=== PATIENT | female | born 1970 | race Two or more races ===

== ENCOUNTER 2018-08-13 02:31 | Inpatient (IN) | payer SELFPAY ==
[~2018-08-13] VITALS: Ht 154.9 cm; Wt 84.7 kg
[2018-08-13 03:05] LABS: Basophils # (auto) 0.2 uL; Basophils % (auto) 1.2 % (0.0-2.0); Eosinophils # (auto) 0.2 uL; Eosinophils % (auto) 0.9 % (0.0-7.0); Hematocrit 37.5 % (36.0-46.0); Hemoglobin 11.5 g/dL (12.2-16.2); Lymphocytes # (auto) 1.2 uL; Lymphocytes % (auto) 5.8 % (10.0-50.0); Mean Corpuscular Hemoglobin 19.8 pg (28.0-32.0); Mean Corpuscular Hgb Conc. 30.8 g/dL (32.0-36.0); Mean Corpuscular Volume 64.2 fL (80.0-100.0); Monocytes # (auto) 1.4 uL; Neutrophils # (auto) 17.5 uL; Neutrophils % (auto) 85.1 % (37.0-80.0); Platelet Count (auto) 398 10^3/uL (140-450); Red Blood Cells 5.83 10^6/uL (4.0-5.20); Red Cell Distribution Width 17.7 % (11.8-14.3); White Blood Cell 20.5 10^3/uL (4.4-10.8)
[2018-08-13 04:06] LABS: Albumin 3.4 g/dL (3.4-5.0); Calcium 8.3 mg/dL (8.5-10.1); Potassium 3.8 mmol/L (3.5-5.1)
[2018-08-13 04:09] LABS: BUN/Creatinine Ratio 12.2; Bilirubin, Total 0.7 mg/dL (0.2-1.0); Total Protein 7.2 g/dL (6.4-8.2)
[2018-08-13] MEDS ORDERED: MORPHINE SULF INJ 2 MG/ML SYRINGE 1ML IM ONE (05:50)
[2018-08-13] MEDS ORDERED: ONDANSETRON HCL 4 MG/2 ML VIAL IV ONE (05:50)
[2018-08-13] MEDS ORDERED: cefTRIAXone 1GM/50ML D5W 50 ML IV ONE (06:45)
[2018-08-13] MEDS ORDERED: SODIUM CHLORIDE 0.9% 500 ML IV ONE (06:45)
[2018-08-13] MEDS ORDERED: KETOROLAC TROMETH 30 MG/ML 1ML VIAL IV ONE (11:15)
[2018-08-13] MEDS ORDERED: DEXTROSE (50%) 50ML SYRG IV PRN (13:00)
[2018-08-13] MEDS ORDERED: MORPHINE SULF INJ 2 MG/ML SYRINGE 1ML IV PRN ×2 (13:00)
[2018-08-13] MEDS ORDERED: NITROGLYCERIN 0.4 MG SL TAB SL PRN (13:00)
[2018-08-13] MEDS ORDERED: SODIUM CHLORIDE 0.9% 1,000 ML IV ONE (13:00)
[2018-08-13] MEDS ORDERED: ONDANSETRON HCL 4 MG/2 ML VIAL IV PRN (13:00)
[2018-08-13] MEDS ORDERED: ENALAPRILAT 1.25 MG/ML-1ML VIAL IV PRN (13:00)
[2018-08-13 15:00] VITALS: BP 167/99
--- NOTE | 2018-08-13 15:00 | NUR ---
Telemetry admit from ER [facility] admitted to Telemetry unit after SBAR received. Patient oriented to Arlyn Monk RN, unit, room, bed, and unit policies regarding patient care and visiting hours. Patient now on continuous telemetry monitoring, tele box # [id number] and telemetry reading on arrival to unit is 102 ST. Patient placed on bedside oxygen, weighed by bed scale and encouraged to call if she needs something. All questions and concerns addressed, patient verbalized understanding. Note: Telemetry reading at Central Unit monitor as per DES.
--- NOTE | 2018-08-13 15:30 | NUR ---
Patient is ambulatory to the bathroom.
[2018-08-13] MEDS: SODIUM CHLORIDE 0.9% 1,000 ML IV SCH ×2 (16:28→22:36)
--- NOTE | 2018-08-13 16:35 | NUR ---
Patient stated her headache level at 8/10 at this time. Morphine Sulf IVP given for severe pain as ordered.
[2018-08-13] MEDS: InsuLIN REG 1unit/0.01ml Soln (100units/ml) SC SCH ×2 (16:44→22:36)
[2018-08-13] MEDS: ACCU-CHEK COMFORT CURVE STRIP VI SCH ×2 (16:44→22:37)
[2018-08-13 16:57] VITALS: BP 167/99
[2018-08-13 22:00] VITALS: BP 189/78
[2018-08-14 05:00] VITALS: BP 151/99
[2018-08-14] MEDS: SODIUM CHLORIDE 0.9% 1,000 ML IV SCH ×3 (05:39→13:48)
[2018-08-14] MEDS: InsuLIN REG 1unit/0.01ml Soln (100units/ml) SC SCH ×4 (06:29→22:00)
[2018-08-14] MEDS: ACCU-CHEK COMFORT CURVE STRIP VI SCH ×4 (06:29→22:01)
--- NOTE | 2018-08-14 07:45 | NUR ---
Patient in bed, asleep. No acute distress noted.
--- NOTE | 2018-08-14 08:00 | NUR ---
Patient sitting in bed, eating breakfast. Patient stated she's not taking routine medications at home.
[2018-08-14 08:20] LABS: Basophils # (auto) 0.1 uL; Basophils % (auto) 0.4 % (0.0-2.0); Eosinophils # (auto) 0.1 uL; Hemoglobin 12.2 g/dL (12.2-16.2); Nucleated Red Blood Cells % 0.1 %
[2018-08-14 08:22] LABS: Eosinophils % (auto) 0.5 % (0.0-7.0); Lymphocytes % (auto) 4.5 % (10.0-50.0); Mean Corpuscular Hemoglobin 19.7 pg (28.0-32.0); Mean Corpuscular Hgb Conc. 30.5 g/dL (32.0-36.0); Mean Corpuscular Volume 64.5 fL (80.0-100.0); Monocytes # (auto) 1.9 uL; Monocytes % (auto) 8.7 % (0.0-12.0); Neutrophils # (auto) 18.6 uL; Neutrophils % (auto) 85.9 % (37.0-80.0); Platelet Count (auto) 425 10^3/uL (140-450); Red Blood Cells 6.21 10^6/uL (4.0-5.20); Red Cell Distribution Width 17.9 % (11.8-14.3); White Blood Cell 21.6 10^3/uL (4.4-10.8)
[2018-08-14 08:34] LABS: Calcium 8.5 mg/dL (8.5-10.1); Magnesium 2.2 mg/dL (1.6-2.6); Potassium 3.3 mmol/L (3.5-5.1)
[2018-08-14 08:38] LABS: BUN/Creatinine Ratio 11.5
[2018-08-14 09:00] VITALS: BP_DIAS 94
[2018-08-14] MEDS ORDERED: AMPICILLIN INJ 1 GM in SODIUM CHL 0.9% 50 ML IV ONE (12:15)
[2018-08-14 13:00] VITALS: BP 145/85
--- NOTE | 2018-08-14 13:25 | NUR ---
Dr. Caputo came over to see the patient. made aware patient on Morphine Sulf IVP only for pain, if patient can have orders for Tylenol; patient on Full Liquid Diet. Dr. Caputo ordered to Advance diet as tolerated.
[2018-08-14] MEDS ORDERED: POTASSIUM CHL 10% (20 MEQ/15ML) 15ml ORAL SOLN PO ONE (13:45)
[2018-08-14] MEDS ORDERED: CEFTRIAXONE SODIUM 2 GM in D5W 5% 50 ML IV ONE (14:45)
--- NOTE | 2018-08-14 15:18 | NUR ---
Patient came back to bed from the bathroom. DES called that patient's heart rate on Telemetry >150s.
[2018-08-14] MEDS ORDERED: POTASSIUM EFFERVESENT TAB 25 MEQ PO ONE (15:45)
[2018-08-14 17:04] VITALS: BP 141/110
[2018-08-14] MEDS ORDERED: AMPICILLIN INJ 1 GM in SODIUM CHL 0.9% 50 ML IV SCH (18:00)
--- NOTE | 2018-08-14 19:38 | NUR ---
Opening Shift Note Assumed care of patient, awake and alert. No S/S of distress/SOB or pain. Pt currently resting in bed with the rails up x2, the bed is locked in the lowest position and the call light is within reach. Left forearm IV flushes without resistance or pain. Instructed on POC and to call for assist as needed. Will continue to monitor.
[2018-08-14] MEDS: METOPROLOL TARTRATE 25 MG TAB PO SCH (22:00)
[2018-08-14] MEDS: ACETAMINOPHEN 325 MG TAB PO PRN (22:01)
[2018-08-15 00:06] VITALS: BP 149/85
[2018-08-15] MEDS: SODIUM CHLORIDE 0.9% 1,000 ML IV SCH (00:30)
[2018-08-15] MEDS: ACETAMINOPHEN 325 MG TAB PO PRN (04:16)
[2018-08-15 04:48] VITALS: BP 159/114
[2018-08-15] MEDS: ACCU-CHEK COMFORT CURVE STRIP VI SCH ×2 (06:11→11:38)
[2018-08-15] MEDS: InsuLIN REG 1unit/0.01ml Soln (100units/ml) SC SCH ×2 (06:11→11:44)
--- NOTE | 2018-08-15 07:50 | NUR ---
Patient in bed, asleep. No acute distress noted.
[2018-08-15 07:59] LABS: Basophils # (auto) 0.1 uL; Hemoglobin 12.5 g/dL (12.2-16.2); Nucleated Red Blood Cells % 0.1 %
[2018-08-15 08:00] LABS: Eosinophils # (auto) 0.4 uL; Eosinophils % (auto) 2.8 % (0.0-7.0); Hematocrit 41.3 % (36.0-46.0); Lymphocytes # (auto) 1.4 uL; Lymphocytes % (auto) 10.8 % (10.0-50.0); Mean Corpuscular Hemoglobin 19.6 pg (28.0-32.0); Mean Corpuscular Hgb Conc. 30.3 g/dL (32.0-36.0); Monocytes # (auto) 1.6 uL; Monocytes % (auto) 12.5 % (0.0-12.0); Neutrophils # (auto) 9.3 uL; Neutrophils % (auto) 72.9 % (37.0-80.0); Platelet Count (auto) 410 10^3/uL (140-450); Red Blood Cells 6.39 10^6/uL (4.0-5.20); Red Cell Distribution Width 18.1 % (11.8-14.3); White Blood Cell 12.7 10^3/uL (4.4-10.8)
[2018-08-15 08:11] LABS: Mean Corpuscular Volume 64.7 fL (80.0-100.0)
[2018-08-15 09:00] VITALS: BP 164/98
--- NOTE | 2018-08-15 09:50 | NUR ---
Dr. Caputo came over. ordered to discontinue the Telemetry.
[2018-08-15] MEDS ORDERED: LISINOPRIL 5 MG TAB PO SCH (10:00)
[2018-08-15] MEDS ORDERED: CEFTRIAXONE SODIUM 2 GM in D5W 5% 50 ML IV SCH (10:00)
[2018-08-15] MEDS ORDERED: MET25T PO (10:32)
[2018-08-15] MEDS ORDERED: AMOX-263 PO (10:32)
[2018-08-15] MEDS ORDERED: METF-370 PO (10:32)
[2018-08-15] MEDS ORDERED: LISI-275 PO (10:32)
[2018-08-15] MEDS: METOPROLOL TARTRATE 25 MG TAB PO SCH (11:36)
[2018-08-15 12:35] VITALS: BP 121/90
[2018-08-15 12:54] VITALS: BP 121/90
--- NOTE | 2018-08-15 13:38 | NUR ---
Discharge instructions given as ordered. Encourage to follow up with PMD as instructed. All questions and concerns addressed. Patient verbalized understanding. Medication reconciliation form completed and copy given to patient. Prescribed medications refilled at [facility], patient said her sister picked it up and took it home, instructions given on how to check blood sugar. IV removed with catheter intact, pressure dressing applied. Telemetry unit returned to DES. Patient taken to vehicle via wheelchair with all personal belongings, accompanied by staff and family member. No distress noted at time of departure.
== END 2018-08-15 19:12 | disposition home or self-care (01) | DRG 872 ==
LOC: ER 02:37 → TELE 12:56 → TELE-WESTW 14:55 → WEST WING 08-15 09:25
PROVIDERS: ADMIT Nurse Practitioner Acute Care; ATTEND Internal Medicine
DX: A41.9 Sepsis, unspecified organism (principal); E44.1 Mild protein-calorie malnutrition; J39.1 Other abscess of pharynx; E04.1 Nontoxic single thyroid nodule; E11.65 Type 2 diabetes mellitus with hyperglycemia; Z68.35 Body mass index [BMI] 35.0-35.9, adult; E66.01 Morbid (severe) obesity due to excess calories; E83.51 Hypocalcemia; E87.6 Hypokalemia; F17.210 Nicotine dependence, cigarettes, uncomplicated; I10 Essential (primary) hypertension; J35.2 Hypertrophy of adenoids; G47.30 Sleep apnea, unspecified
CPT/HCPCS: 36415; 70490; 71045; 80048; 80053; 80061; 82962; 83036; 83605; 83735; 84443; 84702; 85025; 87040; 87880; 96361; 96365; 96367; 96375; G0378; J0696; J1815; J1885; J2405; J7060

== ENCOUNTER 2018-09-29 10:36 | Emergency (ER) | payer MEDICAID ==
[~2018-09-29] VITALS: Ht 154.9 cm; Wt 79.4 kg
[~2018-09-29 10:36] MED LIST: AMOX-263 PO; LISI-275 PO; MET25T PO; METF-370 PO
[2018-09-29 11:30] VITALS: BP 152/99
[2018-09-29] MEDS ORDERED: cefTRIAXone SOD 1,000 MG VL IM ONE (13:15)
== END 2018-09-29 14:31 | disposition home or self-care (01) ==
LOC: ER 10:36
DX: J03.90 Acute tonsillitis, unspecified (principal); E11.9 Type 2 diabetes mellitus without complications; I10 Essential (primary) hypertension; Z88.2 Allergy status to sulfonamides; Z79.84 Long term (current) use of oral hypoglycemic drugs; Z79.899 Other long term (current) drug therapy
CPT/HCPCS: 87070; 87880; 96372; 99283; J0696

== ENCOUNTER 2020-10-04 03:44 | Emergency (ER) | payer MEDICAID ==
[~2020-10-04] VITALS: Ht 154.9 cm; Wt 77.6 kg
[2020-10-04 03:45] VITALS: BP 141/89
== END 2020-10-04 04:23 | disposition home or self-care (01) ==
LOC: ER 03:44
DX: K02.9 Dental caries, unspecified (principal); R22.0 Localized swelling, mass and lump, head; F12.10 Cannabis abuse, uncomplicated; I10 Essential (primary) hypertension; E11.9 Type 2 diabetes mellitus without complications; F17.210 Nicotine dependence, cigarettes, uncomplicated; Z79.899 Other long term (current) drug therapy; Z79.2 Long term (current) use of antibiotics; Z88.2 Allergy status to sulfonamides

== ENCOUNTER 2023-02-13 16:46 | Emergency (ER) | payer MEDICAID ==
[~2023-02-13] VITALS: Ht 154.9 cm; Wt 69.5 kg
[2023-02-13 17:36] LABS: Basophils # (auto) 0.1 10 ^3/uL (0-0.2); Basophils % (auto) 0.5 % (0.0-2.0); Eosinophils % (auto) 0.9 % (0.0-7.0); Lymphocytes # (auto) 1.4 10 ^3/uL (0.4-5.4); Monocytes # (auto) 1.3 10 ^3/uL (0-1.3); Neutrophils % (auto) 82.6 % (37.0-80.0)
[2023-02-13 17:38] LABS: Eosinophils # (auto) 0.1 10 ^3/uL (0-0.8); Hematocrit 51.8 % (36.0-46.0); Lymphocytes % (auto) 8.5 % (10.0-50.0); Mean Corpuscular Hemoglobin 29.1 pg (28.0-32.0); Mean Corpuscular Hgb Conc. 34.7 g/dL (32.0-36.0); Mean Corpuscular Volume 84.1 fL (80.0-100.0); Monocytes % (auto) 7.5 % (0.0-12.0); Neutrophils # (auto) 13.9 10 ^3/uL (1.6-8.6); Nucleated Red Blood Cells % 0.3 %; Red Blood Cells 6.16 10^6/uL (4.0-5.20); Red Cell Distribution Width 12.7 % (11.8-14.3); White Blood Cell 16.8 10^3/uL (4.4-10.8)
[2023-02-13 17:57] LABS: Alanine Aminotransferase 27 U/L (7-40); Albumin 4.3 g/dL (3.2-4.8); Alkaline Phosphatase 143 U/L (46-116); Anion Gap 7 (5-15); Aspartate Aminotransferase < 8 U/L (13-40); BUN/Creatinine Ratio 11.8 (10.0-20.0); Blood Urea Nitrogen 8 mg/dL (9-23); Carbon Dioxide 26 mmol/L (20-30); Chloride 100 mmol/L (98-107); Glucose 289 mg/dL (74-106); Potassium 4.3 mmol/L (3.5-5.1); Sodium 133 mmol/L (136-145)
[2023-02-13] MEDS ORDERED: DexAMETHasone SOD PHOS 10MG/1ML VIAL INJ IV ONE (18:45)
[2023-02-13] MEDS ORDERED: diphenhdrAMINE HCL 50 MG/1 ML VL IV ONE (18:45)
[2023-02-13] MEDS ORDERED: IOHEXOL 300 MG/ML 100ML BOTTLE IJ ONE (18:51)
[2023-02-13 19:32] VITALS: PULSE 122; RESP 22; O2SAT 95
[2023-02-13 19:50] LABS: Rapid Strep A Screen-Throat Negative
[2023-02-13 20:00] VITALS: PULSE 118; RESP 11; O2SAT 96
[2023-02-13 20:32] LABS: Urine Bacteria FEW /hpf (None Seen); Urine Blood Negative /uL (Negative); Urine Clarity Clear (Clear); Urine Color Yellow (Yellow); Urine Protein, UAD TRACE (Negative); Urine Specific Gravity 1.032 (1.001-1.035); Urine Urobilinogen Normal (Negative); Urine WBC 44 /hpf (0 - 5); Urine pH 5.5 (5.0-8.0)
[2023-02-13] MEDS ORDERED: cefTRIAXone 1GM/50ML D5W 50 ML IV ONE (20:45)
[2023-02-13] MEDS ORDERED: metroNIDAZOLE 500MG/100ML 100 ML IV ONE (20:45)
[2023-02-13 23:00] VITALS: TEMP 98.5
[2023-02-14] VITALS: BP 116/65; PULSE 118; RESP 16; O2SAT 92
[2023-02-14] MEDS ORDERED: AMOX875T4 PO (00:12)
== END 2023-02-14 00:36 | disposition home or self-care (01) ==
LOC: EDUNIT# 16:46 → EDBD 16:46 → ER 16:46
DX: J36 Peritonsillar abscess (principal); I10 Essential (primary) hypertension; E11.9 Type 2 diabetes mellitus without complications; F17.210 Nicotine dependence, cigarettes, uncomplicated
CPT/HCPCS: 36415; 70491; 71046; 80053; 81001; 85025; 87070; 87880; 96365; 96368; 96375; 99285; J0696; J1100; J1200; J3490; Q9967

== ENCOUNTER 2023-02-16 12:37 | Emergency (ER) | payer MEDICAID ==
[~2023-02-16] VITALS: Ht 154.9 cm; Wt 71.0 kg
[~2023-02-16 12:37] MED LIST changes: +AMOX875T4 PO
[2023-02-16 13:18] VITALS: BP 147/77; PULSE 116; RESP 16; O2SAT 99
== END 2023-02-16 14:58 | disposition left against medical advice (07) ==
LOC: ER 12:37
DX: J36 Peritonsillar abscess (principal); Z53.21 Procedure and treatment not carried out due to patient leaving prior to being seen by health care provider